=== PATIENT | female | born 1975 | race Caucasian/White ===

== ENCOUNTER 2019-08-12 08:57 | Emergency (ER) | payer OTHER ==
[~2019-08-12] VITALS: Ht 165.1 cm; Wt 75.5 kg
[2019-08-12 08:58] VITALS: BP 137/79
[2019-08-12] MEDS ORDERED: ALB (09:04)
[2019-08-12] MEDS ORDERED: ACETAMINOPHEN 325 MG TAB PO ONE (10:15)
--- NOTE | 2019-08-12 10:23 | REP ---
CT of the brain without IV contrast: There are no comparisons. There is no subdural or epidural hematoma. There is no intraparenchymal or subarachnoid hemorrhage. There is no edema, mass effect or midline shift. The cortical stripe is unremarkable. The ventricles are normal size and midline. The visualized paranasal sinuses and mastoid air cells are clear. Impression: Essentially negative CT study of the brain. Electronically Signed by Dequan Crane MD 08/12/2019 10:15 A
== END 2019-08-12 10:53 | disposition home or self-care (01) ==
LOC: M ED 08:57
DX: S00.03XA Contusion of scalp, initial encounter (principal); W22.8XXA Striking against or struck by other objects, initial encounter; Y92.89 Other specified places as the place of occurrence of the external cause; Y99.0 Civilian activity done for income or pay; F17.210 Nicotine dependence, cigarettes, uncomplicated

== ENCOUNTER → 2020-01-29 | Outpatient (CLI) | payer OTHER ==
[~2020-01-29] MED LIST: ALB
--- NOTE | 2020-01-29 14:52 | REPMRS ---
Patient History The patient states she has not had a clinical breast exam in over a year. Family history of breast cancer in maternal grandmother, cervical cancer at age 29 in mother, prostate cancer in paternal grandfather. 3D TOMOSYNTHESIS WAS PERFORMED. [facility] lifetime risk for breast cancer is 17.3%. CRISTINA [place]. Digital Woman Screen Mammo: January 29, 2020 - Exam #: [id number] Bilateral CC and MLO view(s) were taken. Technologist: Ailyn Rose, Technologist No prior studies available for comparison. FINDINGS: The breast tissue is heterogeneously dense. This may lower the sensitivity of mammography. There is a moderate amount of residual fibroglandular tissue which is fairly symmetric. There is no dominant mass, areas of architectural distortion, or clustered microcalcification typical of malignancy. Assessment: BI-RADS/ACR category 1 mammogram. Negative Mammogram. Recommendation Routine screening mammogram in 1 year (for women over age 40). This mammogram was interpreted with the aid of an FDA-approved computer-aided dectection system. Electronically Signed By: Dequan Espinoza MD 01/29/20 2320
== END ==
LOC: M WHC 13:44
PROVIDERS: ATTEND Emergency Medicine
DX: Z12.31 Encounter for screening mammogram for malignant neoplasm of breast (principal)

== ENCOUNTER → 2021-03-09 | Outpatient (CLI) | payer OTHER ==
--- NOTE | 2021-03-09 15:09 | REPMRS ---
Patient History The patient states she has not had a clinical breast exam in over a year. Family history of breast cancer in maternal grandmother, unknown cancer at age 29 in mother, prostate cancer in paternal grandfather. Pfizer vaccine 09/23/20 right arm. 10/14/20 right arm. Pt denied . Patient states no breast complaints today. Patient has signed MRS History Sheet. Digital Woman Screen Mammo: March 09, 2021 - Exam #: [id number] Bilateral CC and MLO view(s) were taken. Technologist: RT Alex Prior study comparison: January 29, 2020, bilateral digital woman screen mammo performed at [facility]. FINDINGS: The breast tissue is heterogeneously dense. This may lower the sensitivity of mammography. The Volpara volumetric breast density category is: C. There is a moderate amount of heterogeneously dense fibroglandular tissue which is fairly symmetric. There is no interval development of dominant mass, architectural distortion, or grouped microcalcification typical of malignancy. There has been no change in the appearance of the mammogram from the prior studies. 3-D tomosynthesis shows no additional findings. Assessment: BI-RADS/ACR category 1 mammogram. Negative Mammogram. Recommendation Routine screening mammogram of both breasts in 1 year (for women over age 40). This patient's [facility] Lifetime Breast Cancer RIsk is estimated at 17.1 %. This mammogram was interpreted with the aid of an FDA-approved computer-aided dectection system. Electronically Signed By: Gabino Romero MD 03/09/21 [id number]
== END ==
LOC: M WHC 14:07
PROVIDERS: ATTEND Family Medicine
DX: Z12.31 Encounter for screening mammogram for malignant neoplasm of breast (principal)

== ENCOUNTER 2021-05-05 15:00 | Emergency (ER) | payer OTHER ==
[~2021-05-05] VITALS: Ht 165.1 cm; Wt 83.0 kg
[2021-05-05 15:01] VITALS: BP 155/91
--- OUTSIDE RECORDS SUMMARY | 2021-05-05 15:11 | CCD ---
Author Author [facility] Organization [facility] Address Unknown Phone Unavailable Support Name Relationship Address Phone ELDER Next Of Kin [address] [facility] [address] [place] [address] GAGE CAIN Next Of Kin [address] [facility] [address] [place] [address] Bayron GONSALEZDeshawn Abreu Next Of Kin [address] [place], [place] [id number] Re-disclosure Warning The records that you are about to access may contain information from federally-assisted alcohol or drug abuse programs. If such information is present, then the following federally mandated warning applies: This information has been disclosed to you from records protected by federal confidentiality rules (42 CFR part 2). The federal rules prohibit you from making any further disclosure of this information unless further disclosure is expressly permitted by the written consent of the person to whom it pertains or as otherwise permitted by 42 CFR part 2. A general authorization for the release of medical or other information is NOT sufficient for this purpose. The Federal rules restrict any use of the information to criminally investigate or prosecute any alcohol or drug abuse patient.The records that you are about to access may contain highly sensitive health information, the redisclosure of which is protected by Article 27-F of the [facility] Public Health law. If you continue you may have access to information: Regarding HIV / AIDS; Provided by facilities licensed or operated by the [facility] Office of Mental Health; or Provided by the [facility] Office for People With Developmental Disabilities. If such information is present, then the following [facility] mandated warning applies: This information has been disclosed to you from confidential records which are protected by state law. State law prohibits you from making any further disclosure of this information without the specific written consent of the person to whom it pertains, or as otherwise permitted by law. Any unauthorized further disclosure in violation of state law may result in a fine or fci sentence or both. A general authorization for the release of medical or other information is NOT sufficient authorization for further disc losure. Immunizations Vaccine Date Status Description Data Source(s) COVID-19 VACCINE Pfizer 10/14/2020 12:00:00 AM EDT completed [facility] Vaccine Series Complete: YESThis Data wa s Submitted to [facility] Via [employer]. COVID-19 VACCINE Pfizer 09/23/2020 12:00:00 AM EST completed [facility] Vaccine Series Complete: NOThis Data was Submitted to [facility] Via [employer]. INFLUENZA VIRUS VACCINE QUADRIVAL (6 MOS AND UP)/PF 04/23/2020 12:00:00 AM EDT completed [facility] Medications Medication Brand Name Start Date Product Form Dose Route Admi nistrative Instructions Pharmacy Instructions Status Indications Reaction Description Data Source(s) 60 mcg (15 mcg x 4)/0.5 mL 04/27/2021 12:00:00 AM EDT syring e 0 INJECT DIRECTED INJECT DIRECTED SOLD: 04/27/2021 [employer] Insurance Providers Payer name Policy type / Coverage type Policy ID Covered democrat ID Covered democrat's relationship to brady Policy Brady Plan Information [facility] HUMANA [id number] [facility] [id number] DG CLAIM ADMIN WORK COMP SP DG CLAIM ADMIN WORK O [id number] S [id number] [facility] [id number] SP [id number] [facility] O [id number] S [id number] [facility] O [id number] S [id number] [facility] [id number] 2 [id number] ANSI-Commercial [id number] Problems, Conditions, and Diagnoses No Information Surgeries/Procedures No Information Results No Information Social History No Information
--- OUTSIDE RECORDS SUMMARY | 2021-05-05 19:50 | CCD ---
Author Author [facility] Organization [facility] Address Unknown Phone Unavailable Support Name Relationship Address Phone ELDER Next Of Kin [address] [facility] [address] [place] [address] GAGE CAIN Next Of Kin [address] [facility] [address] [place] [address] Bayron GONSALEZDeshawn Abreu Next Of Kin [address] [place], [place] [phone] Re-disclosure Warning The records that you are [...] is protected by Article 27-F of the [facility] Public Health law. If you continue you may have access to information: Regarding HIV / AIDS; Provided by facilities licensed or operated by the [facility] Office of Mental Health; or Provided by the [facility] Office for People With Developmental Disabilities. If such information is present, then the following [facility] mandated warning applies: This information has been [...] law may result in a fine or shelter sentence or both. A general authorization for the release of medical or other information is NOT sufficient authorization for further disc losure. Immunizations Vaccine Date Status Description Data Source(s) COVID-19 VACCINE Pfizer 10/14/2020 12:00:00 AM EDT completed [facility] Vaccine Series Complete: YESThis Data wa s Submitted to [facility] Via [employer]. COVID-19 VACCINE Pfizer 09/23/2020 12:00:00 AM EST completed [facility] Vaccine Series Complete: NOThis Data was Submitted to [facility] Via [employer]. INFLUENZA VIRUS VACCINE QUADRIVAL (6 MOS AND UP)/PF 04/23/2020 12:00:00 AM EDT completed [facility] Medications Medication Brand Name Start Date Product Form Dose Route Admi nistrative Instructions Pharmacy Instructions Status Indications Reaction Description Data Source(s) 60 mcg (15 mcg x 4)/0.5 mL 04/27/2021 12:00:00 AM EDT syring e 0 INJECT DIRECTED INJECT DIRECTED SOLD: 04/27/2021 [employer] Insurance Providers Payer name Policy type / Coverage type Policy ID Covered alliance party ID Covered alliance party's relationship to brady Policy Brady Plan Information [facility] HUMANA [id number] [facility] [id number] DG CLAIM ADMIN WORK COMP SP DG CLAIM ADMIN WORK O [id number] S [id number] [facility] [id number] SP [id number] [facility] O [id number] S [id number] [facility] O [id number] S [id number] [facility] [id number] 2 [id number] ANSI-Commercial [id number] Problems, Conditions, and Diagnoses No Information Surgeries/Procedures No Information Results No Information Social History No Information
== END 2021-05-05 19:50 | disposition left against medical advice (07) ==
LOC: M ED 15:00
DX: Z53.21 Procedure and treatment not carried out due to patient leaving prior to being seen by health care provider (principal)

== ENCOUNTER 2021-05-07 07:43 | Inpatient (IN) | payer OTHER ==
[~2021-05-07] VITALS: Ht 165.1 cm; Wt 80.4 kg
--- OUTSIDE RECORDS SUMMARY | 2021-05-07 07:47 | CCD ---
Author Author [facility] Organization [facility] Address Unknown Phone Unavailable Support Name Relationship Address Phone ELDER Next Of Kin [address] [address] [address] [place] [address] ANTGAGE GALLOWAY Next Of Kin [address] [facility] [address] [place] [address] Bayron GONSALEZLois, Deshawn Next Of Kin [address] [place] [address] GAGE CAIN [place] [phone] [facility] [address] [place] [address] Unavailable Re-disclosure Warning The records that you are [...] is protected by Article 27-F of the [facility] Public Health law. If you continue you may have access to information: Regarding HIV / AIDS; Provided by facilities licensed or operated by the [facility] Office of Mental Health; or Provided by the [facility] Office for People With Developmental Disabilities. If such information is present, then the following [facility] mandated warning applies: This information has [...] law may result in a fine or group home sentence or both. A general authorization for the release of medical or other information is NOT sufficient authorization for further disc losure. Immunizations Vaccine Date Status Description Data Source(s) COVID-19 VACCINE Pfizer 10/14/2020 12:00:00 AM EDT completed [facility] Vaccine Series Complete: YESThis Data wa s Submitted to [facility] Via [employer]. COVID-19 VACCINE Pfizer 09/23/2020 12:00:00 AM EST completed [facility] Vaccine Series Complete: NOThis Data was Submitted to [facility] Via [employer]. INFLUENZA VIRUS VACCINE QUADRIVAL [id number](6 MOS AND UP)/PF 04/23/2020 12:00:00 AM EDT completed [employer] Medications Medication Brand Name Start Date Product Form Dose Route Admi nistrative Instructions Pharmacy Instructions Status Indications Reaction Description Data Source(s) 60 mcg (15 mcg x 4)/0.5 mL 04/27/2021 12:00:00 AM EDT syring e 0 INJECT DIRECTED INJECT DIRECTED SOLD: 04/27/2021 [employer] Insurance Providers Payer name Policy type / Coverage type Policy ID Covered republican ID Covered republican's relationship to brady Policy Brady Plan Information [facility] HUMANA [facility] [id number] [facility] [id number] DG CLAIM ADMIN WORK COMP SP DG CLAIM ADMIN WORK O [id number] S [id number] [facility] [id number] SP [id number] [facility] O [id number] S [id number] [facility] O [id number] S [id number] [facility] [id number] ANSI-Commercial [id number] Problems, Conditions, and Diagnoses No Information Surgeries/Procedures No Information Results No Information Social History No Information
[2021-05-07] MEDS ORDERED: diphenhydrAMINE 50MG CAP PO ONE (08:20)
[2021-05-07] MEDS ORDERED: KETOROLAC 30 MG/ML 1ML VIAL IV ONE (08:20)
--- OUTSIDE RECORDS SUMMARY | 2021-05-07 08:20 | CCD ---
Author Author [facility] Organization [facility] Address Unknown Phone Unavailable Support Name Relationship Address Phone ELDER Next Of Kin [address] [address] [address] [place] [address] ANTGAGE GALLOWAY Next Of Kin [address] [facility] [address] [place] [address] Bayron GONSALEZLois, Deshawn Next Of Kin [address] [place] [address] GAGE CAIN [place] [phone] [facility] [address] [place] [address] Unavailable Re-disclosure Warning The records that you [...] is protected by Article 27-F of the [facility] Public Health law. If you continue you may have access to information: Regarding HIV / AIDS; Provided by facilities licensed or operated by the [facility] Office of Mental Health; or Provided by the [facility] Office for People With Developmental Disabilities. If such information is present, then the following [facility] mandated warning applies: This information has [...] law may result in a fine or fdc sentence or both. A general authorization for the release of medical or other information is NOT sufficient authorization for further disc losure. Immunizations Vaccine Date Status Description Data Source(s) COVID-19 VACCINE Pfizer 10/14/2020 12:00:00 AM EDT completed [facility] Vaccine Series Complete: YESThis Data wa s Submitted to [facility] Via [employer] COVID-19 VACCINE Pfizer 09/23/2020 12:00:00 AM EST completed [facility] Vaccine Series Complete: NOThis Data was Submitted to [facility] Via [employer] INFLUENZA VIRUS VACCINE QUADRIVAL [id number](6 MOS AND UP)/PF 04/23/2020 12:00:00 AM EDT completed [employer] Medications Medication Brand Name Start Date Product Form Dose Route Admi nistrative Instructions Pharmacy Instructions Status Indications Reaction Description Data Source(s) 60 mcg (15 mcg x 4)/0.5 mL 04/27/2021 12:00:00 AM EDT syring e 0 INJECT DIRECTED INJECT DIRECTED SOLD: 04/27/2021 [employer] Insurance Providers Payer name Policy type / Coverage type Policy ID Covered democrat ID Covered democrat's relationship to brady Policy Brady Plan Information [facility] HUMANA [facility] [id number] [facility] [id number] DG CLAIM ADMIN WORK COMP SP DG CLAIM ADMIN WORK O [id number] S [id number] [facility] [id number] SP [id number] [facility] O [id number] S [id number] [facility] O [id number] S [id number] [facility] [id number] 2 [id number] ANSI-Commercial [id number] Problems, Conditions, and Diagnoses No Information Surgeries/Procedures No Information Results No Information Social History No Information
[2021-05-07 08:59] LABS: BASO % 0.2 % (0.0-1.0); EOS # 0.2 10^3/uL (0.0-0.5); EOS % 1.6 % (0.0-3.0); HEMATOCRIT 38.2 % (36.0-47.0); HEMOGLOBIN 13.7 g/dl (12.0-15.5); LYMPH # 2.6 10^3/uL (1.5-5.0); LYMPH % 22.8 % (24.0-44.0); MEAN CORPUSCULAR HEMOGLOBIN 30.1 pg (27.0-33.0); MEAN CORPUSCULAR HGB CONC 35.9 g/dl (32.0-36.5); MONO # 0.8 10^3/uL (0.0-0.8); MONO % 6.7 % (2.0-8.0); NEUTROPHILS # 7.7 10^3/uL (1.5-8.5); NEUTROPHILS % 68.3 % (36.0-66.0); PLATELET COUNT, AUTOMATED 344 10^3/uL (150-450); RED BLOOD COUNT 4.55 10^6/uL (4.00-5.40); WHITE BLOOD COUNT 11.3 10^3/uL (4.0-10.0)
[2021-05-07] MEDS ORDERED: NS 1,000 ML IV ONE (09:30)
[2021-05-07 09:43] LABS: RSV AMPLIFICATION NEGATIVE (NEGATIVE)
[2021-05-07 10:05] LABS: BLOOD UREA NITROGEN 10 MG/DL (7-18); CALCIUM LEVEL 8.4 MG/DL (8.5-10.1); CARBON DIOXIDE LEVEL 26 MEQ/L (21-32); CHLORIDE LEVEL 89 MEQ/L (98-107); CREATININE FOR GFR 0.61 MG/DL (0.55-1.30); GLOMERULAR FILTRATION RATE > 60.0 (>58); GLUCOSE, FASTING 87 MG/DL (70-100); POTASSIUM SERUM 4.5 MEQ/L (3.5-5.1); SODIUM LEVEL 121 MEQ/L (136-145)
[2021-05-07 10:14] LABS: OSMOLALITY SERUM 249 MOSM/KG (275-295)
[2021-05-07] MEDS ORDERED: CETI-24 PO (10:19)
[2021-05-07] MEDS ORDERED: AMIT10TA7 PO (10:19)
[2021-05-07] MEDS ORDERED: PROAAER10 INH (10:19)
[2021-05-07] MEDS ORDERED: FLUTISP NARES (10:19)
[2021-05-07] MEDS ORDERED: HOME MED LIST COMPLETE! XX SCH (10:20)
--- NOTE | 2021-05-07 10:24 | REPVR ---
PROCEDURE INFORMATION: Exam: CT Head Without Contrast Exam date and time: 05/07/2021 9:48 AM Age: 45 years old Clinical indication: Pain; Headache; Additional info: Headache for 13 days/ worst life TECHNIQUE: Imaging protocol: Computed tomography of the head without contrast. Radiation optimization: All CT scans at this facility use at least one of these dose optimization techniques: automated exposure control; mA and/or kV adjustment per patient size (includes targeted exams where dose is matched to clinical indication); or iterative reconstruction. COMPARISON: CT Head without contrast 08/12/2019 9:53 AM FINDINGS: Brain: No acute abnormality. Brain volume is maintained. Punctate 1 mm calcification in the 3rd ventricle is stable may be a very tiny colloid cyst. It does not appear to be causing any significant mass effect. Cerebral ventricles: No ventriculomegaly. Paranasal sinuses: Visualized sinuses are unremarkable. No fluid levels. Mastoid air cells: Visualized mastoid air cells are well aerated. Bones/joints: Unremarkable. No acute fracture. Soft tissues: Unremarkable. IMPRESSION: No acute intracranial abnormality. No significant interval change. Electronically signed by: Ronal Vasquez On 05/07/2021 10:23:47 AM
[2021-05-07 10:26] LABS: THYROID STIMULATING HORMONE 0.985 uIU/ML (0.358-3.740)
[2021-05-07 10:35] LABS: OSMOLALITY URINE 951 MOSM/KG (50-1400)
[2021-05-07 10:47] LABS: C REACTIVE PROTEIN QUANTITATIV < 0.30 MG/DL (0.00-0.30)
[2021-05-07 10:58] LABS: SODIUM,RANDOM URINE 126 MEQ/L
[2021-05-07] MEDS ORDERED: ACETAMINOPHEN 325 MG TAB PO ONE (11:15)
--- OUTSIDE RECORDS SUMMARY | 2021-05-07 11:21 | CCD ---
Author Author [facility] Organization [facility] Address Unknown Phone Unavailable Support Name Relationship Address Phone ELDER Next Of Kin [address] [address] 0 [place] [address] ANTGAGE GALLOWAY Next Of Kin [address] [facility] [address] [place] [address] Bayron GONSALEZLois, Deshawn Next Of Kin [address] [place] [address] GAGE CAIN [place] [phone] [facility] [address] [place] [address] Unavailable Re-disclosure Warning The records that you [...] of the [facility] Public Health law. If you continue you may have access to information: Regarding HIV / AIDS; Provided by facilities licensed or operated by the [facility] Office of Mental Health; or Provided by the [facility] Office for People With Developmental Disabilities. If such information is present, then the following [facility] mandated warning applies: This information has been [...] law may result in a fine or detention sentence or both. A general authorization for the release of medical or other information is NOT sufficient authorization for further disc losure. Immunizations Vaccine Date Status Description Data Source(s) COVID-19 VACCINE Pfizer 10/14/2020 12:00:00 AM EDT completed [facility] Vaccine Series Complete: YESThis Data wa s Submitted to [facility] Via [employer]. COVID-19 VACCINE Pfizer 09/23/2020 12:00:00 AM EST completed [facility] Vaccine Series Complete: NOThis Data was Submitted to [facility] Via [employer]. INFLUENZA VIRUS VACCINE QUADRIVAL [id number](6 MOS AND UP)/PF 04/23/2020 12:00:00 AM EDT completed [employer] Medications Medication Brand Name Start Date Product Form Dose Route Admi nistrative Instructions Pharmacy Instructions Status Indications Reaction Description Data Source(s) 60 mcg (15 mcg x 4)/0.5 mL 04/27/2021 12:00:00 AM EDT syring e 0 INJECT DIRECTED INJECT DIRECTED SOLD: 04/27/2021 [employer] Insurance Providers Payer name Policy type / Coverage type Policy ID Covered green party ID Covered green party's relationship to brady Policy Brady Plan Information [facility] HUMANA [facility] [id number] [facility] [id number] DG CLAIM ADMIN WORK COMP SP DG CLAIM ADMIN WORK O [id number] S [id number] [facility] [id number] SP [id number] [facility] O [id number] S [id number] [facility] O [id number] S [id number] [facility] [id number] 2 [id number] ANSI-Commercial [id number] Problems, Conditions, and Diagnoses No Information Surgeries/Procedures No Information Results No Information Social History No Information
[2021-05-07] MEDS ORDERED: METOCLOPRAMIDE 5 MG TAB PO ONE (12:00)
[2021-05-07] MEDS ORDERED: SUMAtriptan SUCCINATE 6 MG/0.5 ML VIAL SC ONE (12:10)
[2021-05-07] MEDS: METOCLOPRAMIDE INJ 10MG/2ML VIAL (J2765 PER 1) IV SCH ×2 (14:00→20:09)
[2021-05-07] MEDS ORDERED: ALBUTEROL 90 MCG/ACT 8GM HFA INHALER INH PRN (14:10)
--- NOTE | 2021-05-07 14:13 | HPEPDOC ---
General Date of Admission May 07, 2021 at 11:10 Date of Service: May 07, 2021 Chief Complaint The patient is a 45-year-old female admitted with a reason for visit of Headache, Hyponatremia. Source: Patient History of Present Illness 45-year-old female presented to the emergency room for ongoing severe headache for the past 13 days. Patient has seen her primary care twice and medications have been ordered including ibuprofen and Tylenol and yesterday she was ordered amitriptyline which she took 1 dose without any relief of her symptoms. This morning she had nausea and vomiting along with the headache so presented to the emergency room. Patient complains of pain in the head neck mostly in the occipital region and also at the top of the head dull throbbing in nature rates the pain as 7/10 after she got some pain medication in the emergency room. Her pain is associated with sensibility to light and nausea and vomiting this morning. CT head in the emergency room was negative. Irrigations in the emergency room was not able to control her pain so she was admitted to the hospitalist service for severe intractable headache Home Medications Scheduled Amitriptyline HCl (Amitriptyline HCl) 10 Mg Tablet, 10 MG PO QHS, (Reported) Fluticasone Propionate (Fluticasone Propionate) 16 Gm [place].susp, 1 SPRAY NARES BID, (Reported) Scheduled PRN Albuterol Sulfate (Proair Hfa) 8.5 Gm Hfa.aer.ad, 2 PUFF INH Q4H PRN for SHORTNESS OF BREATH, (Reported) Cetirizine HCl (Cetirizine HCl) 10 Mg Tablet, 10 MG PO DAILY PRN for ALLERGIES, (Reported) Allergies Coded Allergies: No Known Allergies (Unverified , 08/12/19) Past Medical History Medical History Asthma Surgical History section x2, tubal ligation, uterine ablation Family History Significant Family History: Diabetes (Mother), Heart disease (Mother), Renal disease (Mother) Social History * Smoker: non-smoker Alcohol: rarely Drugs: denies A-FIB/CHADSVASC A-FIB History Current/History of A-Fib/PAF?: No Review of Systems Constitutional: Denies: Chills, Fever, Night Sweats Eyes: Denies: Pain, Vision change, Conjunctivae inflammation, Eyelid inflammation, Redness, Other ENT: Reports: Head Aches Skin: Denies: Rash, Lesions, Breakdown Pulmonary: Denies: Dyspnea, Cough Cardiovascular: Denies: Chest Pain, Palpitations, Orthopnea, Paroxysmal Noc. Dyspnea, Lt Headedness Gastrointestinal: Reports: Nausea, Vomiting; Denies: Abdominal Pain, Diarrhea, Constipation Genitourinary: Denies: Dysuria, Frequency, Incontinence, Retention Hematologic: Denies: Bruising, Bleeding Excessively Musculoskeletal: Denies: Neck Pain, Back Pain, Joint Pain, Muscle Pain, Spasms Neurological: Denies: Weakness, Numbness, Change in speech, Confusion Physical Examination General Exam: Positive: Alert, Cooperative, No Acute Distress Eye Exam: Positive: PERRLA, Conjunctiva & lids normal, EOMI; Negative: Sclera icteric ENT Exam: Positive: Atraumatic, Mucous membr. moist/pink, Pharynx Normal Neck Exam: Positive: Supple; Negative: JVD, thyromegaly Chest Exam: Positive: Clear to auscultation, Normal air movement Heart Exam: Positive: Rate Normal, Regular Rhythm, Normal S1, Normal S2; Negative: Murmurs, Rubs Abdomen Exam: Positive: Normal bowel sounds, Soft; Negative: Tenderness, Hepatospenomegaly Extremity Exam: Positive: Normal pulses; Negative: Clubbing, Cyanosis, Edema Skin Exam: Positive: Nl turgor and temperature; Negative: Breakdown, Lesion Psych Exam: Positive: Memory Intact, Oriented x 3 Vital Signs Vital Signs Date Time Temp Pulse Resp B/P (MAP) Pulse Ox O2 Delivery O2 Flow Rate FiO2 05/07/21 07:43 97.4 72 18 125/74 (91) 98 Room Air Laboratory Data Labs 24H Laboratory Tests 2 05/07/21 08:45: Immature Granulocyte % (Auto) 0.4, Neutrophils (%) (Auto) 68.3H, Lymphocytes (%) (Auto) 22.8L, Monocytes (%) (Auto) 6.7, Eosinophils (%) (Auto) 1.6, Basophils (%) (Auto) 0.2, Neutrophils # (Auto) 7.7, Lymphocytes # (Auto) 2.6, Monocytes # (Auto) 0.8, Eosinophils # (Auto) 0.2, Basophils # (Auto) 0.0, Nucleated Red Blood Cells % (auto) 0.0, Erythrocyte Sedimentation Rate 6, Coronavirus (COVID- 19)(PCR) NEGATIVE, Influenza Type A (RT-PCR) NEGATIVE, Influenza Type B (RT-PCR) NEGATIVE, Respiratory Syncytial Virus (PCR) NEGATIVE 05/07/21 09:07: POC Glucose (Misc Panel) 88, POC Sodium (Misc Panel) 120L, POC Potassium (Misc Panel) 4.2, POC Chloride (Misc Panel) 84L, POC Total CO2 (Misc Panel) 24.0, POC Blood Urea Nitrogen (Misc Panel 10, POC Ionized Calcium (Misc Panel) 4.5, POC Creatinine (Misc Panel) 0.7, POC Hematocrit (Misc Panel) 41.0 05/07/21 09:15: Anion Gap 6L, Glomerular Filtration Rate > 60.0, Osmolality 249L, Calcium Level 8.4L, C-Reactive Protein, Quantitative < 0.30, Thyroid Stimulating Hormone (TSH) 0.985 05/07/21 09:17: POC Beta HCG, Quantitative < 5.0 05/07/21 10:24: Urine Osmolality 951, Urine Random Sodium 126 CBC/BMP Laboratory Tests 05/07/21 08:45 05/07/21 09:15 Assessment/Plan 45-year-old female presented to the emergency room for ongoing severe headache for the past 13 days. Patient has seen her primary care twice and medications have been ordered including ibuprofen and Tylenol and yesterday she was ordered amitriptyline which she took 1 dose without any relief of her symptoms. This morning she had nausea and vomiting along with the headache so presented to the emergency room. Patient complains of pain in the head neck mostly in the occipital region and also at the top of the head dull throbbing in nature rates the pain as 7/10 after she got some pain medication in the emergency room. Her pain is associated with sensibility to light and nausea and vomiting this morning. CT head in the emergency room was negative. Irrigations in the emergency room was not able to control her pain so she was admitted to the hospitalist service for severe intractable headache. Headache Likely acute migraine We will put the patient on Toradol, Reglan, Benadryl, sumatriptan If headache is not improved by tomorrow will likely get an MRI of brain. Hyponatremia Na 121, urine os > 900 , Ur Na at 126 likely due to increased ADH activity form the severe ongoing pain started on hypertonic salin recheck na every 6 hours. Nephro consulted Asthma No issues at this Will order albuterol as needed Plan / VTE VTE Prophylaxis Ordered?: Yes Marely Marie MD May 07, 2021 14:13
[2021-05-07] MEDS ORDERED: SODIUM CHLORIDE 3% 100 ML IV SCH (15:00)
[2021-05-07 16:10] VITALS: BP 124/80
[2021-05-07] MEDS: diphenhydrAMINE 50MG/ML VIAL (J1200) IV SCH ×2 (16:11→20:10)
[2021-05-07] MEDS: KETOROLAC 30 MG/ML 1ML VIAL IV SCH ×2 (16:12→20:10)
[2021-05-07 16:43] LABS: BLOOD UREA NITROGEN 13 MG/DL (7-18); CALCIUM LEVEL 8.4 MG/DL (8.5-10.1); CARBON DIOXIDE LEVEL 24 MEQ/L (21-32); CHLORIDE LEVEL 87 MEQ/L (98-107); CREATININE FOR GFR 0.55 MG/DL (0.55-1.30); GLOMERULAR FILTRATION RATE > 60.0 (>58); GLUCOSE, FASTING 81 MG/DL (70-100); POTASSIUM SERUM 4.2 MEQ/L (3.5-5.1); SODIUM LEVEL 119 MEQ/L (136-145)
[2021-05-07] MEDS: SUMAtriptan SUCCINATE 25 MG TAB PO PRN (18:43)
[2021-05-07 19:54] VITALS: BP 124/79
[2021-05-07 21:01] LABS: BLOOD UREA NITROGEN 13 MG/DL (7-18); CALCIUM LEVEL 7.7 MG/DL (8.5-10.1); CARBON DIOXIDE LEVEL 25 MEQ/L (21-32); CHLORIDE LEVEL 88 MEQ/L (98-107); CREATININE FOR GFR 0.63 MG/DL (0.55-1.30); GLOMERULAR FILTRATION RATE > 60.0 (>58); GLUCOSE, FASTING 75 MG/DL (70-100); POTASSIUM SERUM 3.8 MEQ/L (3.5-5.1); SODIUM LEVEL 120 MEQ/L (136-145)
[2021-05-08] MEDS: SODIUM CHLORIDE 1 GM TAB PO SCH ×4 (00:11→17:47)
[2021-05-08] MEDS: SUMAtriptan SUCCINATE 25 MG TAB PO PRN ×2 (00:12→17:47)
--- NOTE | 2021-05-08 00:12 | CR ---
CONSULTATION DATE: 05/07/2021 REQUESTING PHYSICIAN: Dr. Marely Marie REASON FOR CONSULTATION: Hypo-osmolar hyponatremia HISTORY OF PRESENT ILLNESS: Hallie Menjivar is previously unknown to me. This is the first time she has had blood work done at the [facility]. She reports her primary care is through [place] and that she had normal labs done during a routine checkup over the summer. She came to the Emergency Room with a complaint of a 13-day history of severe headache. She complains of a 2-3 day history of nausea and poor intake and subsequent development of recurrent vomiting. She was unable to keep anything down and her headache continued to intensify and was described as throbbing and pounding. She reports her primary care had recommended that she take Tylenol, NSAIDs and recently Amitriptyline, but she had no improvement in her headache and after developing vomiting, she decided to come to the Emergency Room for further evaluation. She reports she has had headaches in the past, but none that have lasted this long. She also reports she has not been formally diagnosed with any sort of syndrome of headaches. In the Emergency Room, she had a CAT scan that did not show any acute abnormalities, but laboratory studies revealed a sodium level of 121 with a serum osmolality depressed at 249. She had a normal TSH and urine osmolality was significantly elevated at 951 mOsm and nephrology evaluation was requested for help in the management of her hypo-osmolar hyponatremia. Patient denies any prior known history of sodium disorder. Denies history of regular steroid use. Denies history of diuretic use. Denies history of thyroid disorders and denies history of polydipsia. She reports no confusion, but does feel a little "foggy." HOME MEDICATIONS: Recently started on Amitriptyline 10 mg p.o. q.h.s. Also uses Fluticasone [place] b.i.d. and p.r.n. Tylenol and Ibuprofen. ALLERGIES: No known drug allergies. PAST MEDICAL HISTORY: Asthma and history of headaches. PAST SURGICAL HISTORY: section, tubal ligation, uterine ablation. FAMILY HISTORY: Significant for diabetes and heart disease in her mother. SOCIAL HISTORY: She is a nonsmoker, reports rare alcohol intake. Denies drugs. REVIEW OF SYSTEMS: Constitutional: Denies fevers or chills. ENT: Reports headaches. Denies rhinorrhea or epistaxis. Eyes: Denies visual changes or tearing. Skin: Denies rashes, lesions or breakdown. Cardiovascular: Denies chest pain, palpitations or swelling. Pulmonary: Denies cough, shortness of breath. Reports history of asthma. Gastrointestinal: Reports nausea, vomiting. Denies diarrhea or constipation. Genitourinary: Denies dysuria or hematuria. Hematologic: Denies anemia, easy bleeding or bruising. Neurologic: Denies confusion. Reports feeling a little "foggy." Musculoskeletal: Denies acute myalgias or arthralgias. Remainder of review of systems is negative or as per HPI. PHYSICAL EXAMINATION: VITAL SIGNS: Temperature 98.2, pulse 65, respiratory rate 17, blood pressure 124/79, saturating 98% on room air. Saturating 98% on room air. GENERAL: Patient is seen lying fairly comfortably in the stretcher in the Emergency Room in a darkened room. A middle-age female awake, alert and oriented x3, comfortable appearing in no distress. Able to carry on a conversation without any issues. HEENT: Extraocular muscles are intact. Tongue is moist. Neck is supple. Jugular veins are not elevated. There is no thyromegaly. HEART: Heart sounds are regular, S1, S2. Peripheral pulses are palpable. There is no edema. There is no leg swelling. LUNGS: Clear to auscultation. There is no crackle, rale or rhonchus. ABDOMEN: Soft and nontender. EXTREMITIES: Negative for edema, clubbing or cyanosis. NEUROLOGIC: She is oriented x3. There are no focal deficits. She is interactive and conversational. LABORATORY DATA: Sodium 121, potassium 4.5, bicarbonate 26, chloride 89, BUN 10, creatinine 0.6. Serum osmolality 249. TSH 0.98. Hemoglobin 13.7, platelets 344,000. Urine osmolality 951. Urine sodium 126. IMAGING STUDIES: Head CT done today shows no acute abnormality. INPATIENT MEDICATIONS: I ordered hypertonic saline 100 cc to be given over three hours. She is on diphenhydramine 25 mg I.V. every 6 hours. She received a dose of Tylenol 975 mg x1. She is also receiving Toradol 15 mg I.V. every 6 hours, Reglan 5 mg p.o. x1 and 5 mg I.V. every 6 hours, Sumatriptan 6 mg subcutaneous x1 and Sumatriptan 50 mg p.o. every 2 hours p.r.n. headache. PROBLEMS: 1. Euvolemic hypo-osmolar hyponatremia: Patient denies a prior history of sodium disorder, she denies any history of diuretic or laxative use. Denies history of steroid use or thyroid issues. In the absence of other findings, I think her hyponatremia is likely secondary to anti-diuretic hormone excess secondary to prolonged headaches, pain, nausea. Her urine osmolality is extremely high at almost 1,000 mOsm. She should not receive normal saline as she is likely to desalinate and have worsening hyponatremia. Instead I will give her 100 cc of hypertonic saline over three hours and we will get a repeat BMP to reassess and further management will be based upon her clinical course and repeat labs. I will try to bring her sodium up to around 128 by 24-hour period. We will also check an a.m. Cortisol level and primary team is working on pain and nausea control. 2. Prolonged headache: Patient denies a prior formal diagnosis of migraine or headache syndrome. She reports she does have intermittent headaches, but they usually just last a couple of days. She had a negative CT head in the Emergency Room. She is receiving I.V. Toradol, antiemetics and Sumatriptan managed by the primary team. I strongly suggest that she have an MRI of the brain as well given that her headache and pain was severe enough to cause significant hyponatremia. Consideration can also be given to Neurology evaluation. Thank you for involving me in the care of Ms. Menjivar. I will be happy to follow her along with you. ESTRELLA
[2021-05-08] MEDS: KETOROLAC 30 MG/ML 1ML VIAL IV SCH ×4 (02:13→19:58)
[2021-05-08] MEDS: diphenhydrAMINE 50MG/ML VIAL (J1200) IV SCH ×4 (02:14→19:57)
[2021-05-08] MEDS: METOCLOPRAMIDE INJ 10MG/2ML VIAL (J2765 PER 1) IV SCH ×4 (02:14→19:59)
[2021-05-08 06:29] LABS: BASO % 0.4 % (0.0-1.0); EOS # 0.3 10^3/uL (0.0-0.5); EOS % 3.4 % (0.0-3.0); HEMATOCRIT 36.6 % (36.0-47.0); HEMOGLOBIN 13.2 g/dl (12.0-15.5); LYMPH # 3.1 10^3/uL (1.5-5.0); LYMPH % 39.8 % (24.0-44.0); MEAN CORPUSCULAR HEMOGLOBIN 30.1 pg (27.0-33.0); MEAN CORPUSCULAR HGB CONC 36.1 g/dl (32.0-36.5); MEAN CORPUSCULAR VOLUME 83.6 fl (80.0-96.0); MONO # 0.7 10^3/uL (0.0-0.8); MONO % 8.6 % (2.0-8.0); NEUTROPHILS # 3.7 10^3/uL (1.5-8.5); NEUTROPHILS % 47.5 % (36.0-66.0); PLATELET COUNT, AUTOMATED 321 10^3/uL (150-450); RED BLOOD COUNT 4.38 10^6/uL (4.00-5.40); WHITE BLOOD COUNT 7.7 10^3/uL (4.0-10.0)
[2021-05-08 06:50] LABS: BLOOD UREA NITROGEN 12 MG/DL (7-18); CALCIUM LEVEL 7.3 MG/DL (8.5-10.1); CARBON DIOXIDE LEVEL 26 MEQ/L (21-32); CHLORIDE LEVEL 88 MEQ/L (98-107); CREATININE FOR GFR 0.61 MG/DL (0.55-1.30); GLOMERULAR FILTRATION RATE > 60.0 (>58); GLUCOSE, FASTING 72 MG/DL (70-100); POTASSIUM SERUM 3.8 MEQ/L (3.5-5.1); SODIUM LEVEL 121 MEQ/L (136-145)
[2021-05-08 09:04] LABS: SODIUM,RANDOM URINE 76 MEQ/L
[2021-05-08 10:39] LABS: OSMOLALITY URINE 892 MOSM/KG (50-1400)
--- NOTE | 2021-05-08 11:47 | IPNPDOC ---
Subjective Date Seen The patient was seen on 05/08/21. Subjective Chief Complaint/HPI Her headache did get better a little bit overnight however as soon as she is awake her headache is back she was able to tolerate breakfast this morning did not have any nausea or vomiting Objective Physical Examination General Exam: Positive: Alert, Cooperative, No Acute Distress Eye Exam: Positive: PERRLA, Conjunctiva & lids normal, EOMI; Negative: Sclera icteric ENT Exam: Positive: Atraumatic, Mucous membr. moist/pink, Pharynx Normal Neck Exam: Positive: Supple; Negative: JVD, thyromegaly Chest Exam: Positive: Clear to auscultation, Normal air movement Heart Exam: Positive: Rate Normal, Regular Rhythm, Normal S1, Normal S2; Negative: Murmurs, Rubs Abdomen Exam: Positive: Normal bowel sounds, Soft; Negative: Tenderness, Hepatospenomegaly Extremity Exam: Positive: Normal pulses; Negative: Clubbing, Cyanosis, Edema Skin Exam: Positive: Nl turgor and temperature; Negative: Breakdown, Lesion Psych Exam: Positive: Memory Intact, Oriented x 3 Assessment /Plan Assessment 45-year-old female presented to the emergency room for ongoing severe headache for the past 13 days. Patient has seen her primary care twice and medications have been ordered including ibuprofen and Tylenol and yesterday she was ordered amitriptyline which she took 1 dose without any relief of her symptoms. This morning she had nausea and vomiting along with the headache so presented to the emergency room. Patient complains of pain in the head neck mostly in the oc cipital region and also at the top of the head dull throbbing in nature rates the pain as 7/10 after she got some pain medication in the emergency room. Her pain is associated with sensibility to light and nausea and vomiting this morning. CT head in the emergency room was negative. Irrigations in the emergency room was not able to control her pain so she was admitted to the hospitalist service for severe intractable headache. Headache Likely acute migraine however still there is no relief of the headache We will put the patient on Toradol, Reglan, Benadryl, sumatriptan will get MRI of brain. Hyponatremia Na 121, urine os > 900 , Ur Na at 126 likely due to increased ADH activity form the severe ongoing pain currently on salt tabs. Also has low cortisol levels Asthma No issues at this Will order albuterol as needed Plan/VTE VTE Prophylaxis Ordered?: Yes VS, I&O, 24H, Fishbone Vital Signs/I&O Vital Signs Date Time Temp Pulse Resp B/P (MAP) Pulse Ox O2 Delivery O2 Flow Rate FiO2 05/08/21 06:00 97.9 69 18 96 Room Air 05/07/21 19:54 124/79 (94) I&O- Last 24 Hours up to 6 AM 05/08/21 05:59 Intake Total 820 ml Balance 820 ml Laboratory Data 24H LABS Laboratory Tests 2 05/07/21 15:53: Anion Gap 8, Glomerular Filtration Rate > 60.0, Calcium Level 8.4L 05/07/21 20:22: Anion Gap 7L, Glomerular Filtration Rate > 60.0, Calcium Level 7.7L 05/08/21 05:49: Anion Gap 7L, Glomerular Filtration Rate > 60.0, Calcium Level 7.3L, Immature G ranulocyte % (Auto) 0.3, Neutrophils (%) (Auto) 47.5, Lymphocytes (%) (Auto) 39.8, Monocytes (%) (Auto) 8.6H, Eosinophils (%) (Auto) 3.4H, Basophils (%) (Auto) 0.4, Neutrophils # (Auto) 3.7, Lymphocytes # (Auto) 3.1, Monocytes # (Auto) 0.7, Eosinophils # (Auto) 0.3, Basophils # (Auto) 0.0, Nucleated Red Blood Cells % (auto) 0.0, Cortisol AM Sample 2.9L 05/08/21 08:36: Urine Osmolality 892, Urine Random Sodium 76 05/08/21 10:37: Lab Scanned Report Miscellaneous Lab CBC/BMP Laboratory Tests 05/07/21 15:53 05/07/21 20:22 05/08/21 05:49 Marely Marie MD May 08, 2021 11:47
[2021-05-08 14:00] VITALS: BP 124/76
[2021-05-08 14:17] LABS: BLOOD UREA NITROGEN 11 MG/DL (7-18); CARBON DIOXIDE LEVEL 28 MEQ/L (21-32); CHLORIDE LEVEL 89 MEQ/L (98-107); CREATININE FOR GFR 0.75 MG/DL (0.55-1.30); GLOMERULAR FILTRATION RATE > 60.0 (>58); GLUCOSE, FASTING 83 MG/DL (70-100); POTASSIUM SERUM 3.7 MEQ/L (3.5-5.1); SODIUM LEVEL 124 MEQ/L (136-145)
--- NOTE | 2021-05-08 15:41 | IPN ---
PROGRESS NOTE DATE: 05/08/2021 Ms. Menjivar is seen this morning on her bedside. She reports improving headache and feeling much better today. She still has some headache when she lies down; however, mostly she is feeling better now. Her nausea has also improved. She was given 100 mL of hypertonic saline yesterday, and last evening I put her on oral sodium chloride tablets due to her severe hyponatremia. 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 Patient denies any vomiting or diarrhea this morning, and she did eat. PHYSICAL EXAMINATION: Temperature 97.9 degrees Fahrenheit, heart rate 70 per minute, respiratory rate 18 per minute. Blood pressure is now 124/86 mmHg and oxygen saturation 98% on room air. She is sitting in the bed without any acute distress. Her head is atraumatic. Neck supple and jugular venous distention (JVD) or thyroid enlargement. Pupils equal and reactive to light, and sclerae are anicteric. Heart sounds are regular and lungs clear to auscultation. Abdomen soft and nontender, and bowel sounds are normal. Extremities without any cyanosis or clubbing. Neurologically she is awake, alert, and without any focal deficit. Today's labs show sodium 121, potassium 3.8, chloride 88, CO2 of 26, BUN 12, and creatinine 0.61. Glucose 72 and calcium 7.3. A cortisol level this morning has come back at 2.9. Hemoglobin is 13.2 and hematocrit 36.6. PROBLEMS: 1. Hyponatremia. Most likely she is SIADH caused by severe headache and nausea. Her urine osmolarity has been very high at 951 and 892 on two different occasions. I am going to hold off on hypertonic saline at present. She has been tolerating oral sodium chloride tablets well and is asymptomatic as far as her hyponatremia goes. I will continue with oral sodium chloride tablets 2 grams every 6 hours. Her electrolytes will be repeated this afternoon and again tomorrow morning. We will try to correct her hyponatremia gradually. 2. Headache. Her headache has improved, and she is feeling much better now. 3. Low serum cortisol level. I am not sure what this means. I do not feel that she has adrenal insufficiency, as she has no clinical features or other lab problems other than hyponatremia. If we can correct her hyponatremia with oral sodium chloride tablets and then remains stable, then we will not need any further investigation. In case she has recurrence of hyponatremia after correcting it, then we will need to do a cortisol stimulation test.
[2021-05-08 16:48] LABS: BLOOD UREA NITROGEN 10 MG/DL (7-18); CARBON DIOXIDE LEVEL 25 MEQ/L (21-32); CHLORIDE LEVEL 90 MEQ/L (98-107); GLOMERULAR FILTRATION RATE > 60.0 (>58); GLUCOSE, FASTING 76 MG/DL (70-100); POTASSIUM SERUM 3.9 MEQ/L (3.5-5.1); SODIUM LEVEL 123 MEQ/L (136-145)
[2021-05-08 22:00] VITALS: BP 128/75
[2021-05-08 23:26] LABS: BLOOD UREA NITROGEN 8 MG/DL (7-18); CALCIUM LEVEL 8.3 MG/DL (8.5-10.1); CARBON DIOXIDE LEVEL 26 MEQ/L (21-32); CHLORIDE LEVEL 93 MEQ/L (98-107); CREATININE FOR GFR 0.59 MG/DL (0.55-1.30); GLOMERULAR FILTRATION RATE > 60.0 (>58); GLUCOSE, FASTING 88 MG/DL (70-100); POTASSIUM SERUM 3.9 MEQ/L (3.5-5.1); SODIUM LEVEL 128 MEQ/L (136-145)
[2021-05-09] MEDS: SODIUM CHLORIDE 1 GM TAB PO SCH ×4 (00:15→20:05)
[2021-05-09] MEDS: METOCLOPRAMIDE INJ 10MG/2ML VIAL (J2765 PER 1) IV SCH (02:19)
[2021-05-09] MEDS: diphenhydrAMINE 50MG/ML VIAL (J1200) IV SCH (02:19)
[2021-05-09] MEDS: KETOROLAC 30 MG/ML 1ML VIAL IV SCH (02:19)
[2021-05-09 04:00] VITALS: BP 112/62
[2021-05-09] MEDS ORDERED: diphenhydrAMINE 50MG/ML VIAL (J1200) IV PRN (07:10)
[2021-05-09] MEDS ORDERED: METOCLOPRAMIDE INJ 10MG/2ML VIAL (J2765 PER 1) IV PRN (07:10)
[2021-05-09] MEDS ORDERED: KETOROLAC 30 MG/ML 1ML VIAL IV PRN (07:10)
[2021-05-09 07:17] LABS: BASO % 0.4 % (0.0-1.0); EOS # 0.3 10^3/uL (0.0-0.5); EOS % 3.5 % (0.0-3.0); HEMATOCRIT 36.7 % (36.0-47.0); HEMOGLOBIN 13.1 g/dl (12.0-15.5); LYMPH # 2.8 10^3/uL (1.5-5.0); LYMPH % 34.5 % (24.0-44.0); MEAN CORPUSCULAR HGB CONC 35.7 g/dl (32.0-36.5); MONO # 0.7 10^3/uL (0.0-0.8); MONO % 9.1 % (2.0-8.0); NEUTROPHILS # 4.2 10^3/uL (1.5-8.5); NEUTROPHILS % 52.1 % (36.0-66.0); PLATELET COUNT, AUTOMATED 326 10^3/uL (150-450); RED BLOOD COUNT 4.37 10^6/uL (4.00-5.40)
[2021-05-09 07:32] LABS: BLOOD UREA NITROGEN 9 MG/DL (7-18); CALCIUM LEVEL 7.8 MG/DL (8.5-10.1); CARBON DIOXIDE LEVEL 26 MEQ/L (21-32); CHLORIDE LEVEL 95 MEQ/L (98-107); CREATININE FOR GFR 0.65 MG/DL (0.55-1.30); GLOMERULAR FILTRATION RATE > 60.0 (>58); GLUCOSE, FASTING 78 MG/DL (70-100); POTASSIUM SERUM 4.1 MEQ/L (3.5-5.1); SODIUM LEVEL 127 MEQ/L (136-145)
[2021-05-09 14:00] VITALS: BP 124/75
--- NOTE | 2021-05-09 15:07 | IPNPDOC ---
Subjective Date Seen The patient was seen on 05/09/21. Subjective Chief Complaint/HPI Headache getting better. No further nausea. MRI pending. Objective Physical Examination General Exam: Positive: Alert, Cooperative, No Acute Distress Eye Exam: Positive: PERRLA, Conjunctiva & lids normal, EOMI; Negative: Sclera icteric ENT Exam: Positive: Atraumatic, Mucous membr. moist/pink, Pharynx Normal Neck Exam: Positive: Supple; Negative: JVD, thyromegaly Chest Exam: Positive: Clear to auscultation, Normal air movement Heart Exam: Positive: Rate Normal, Regular Rhythm, Normal S1, Normal S2; Negative: Murmurs, Rubs Abdomen Exam: Positive: Normal bowel sounds, Soft; Negative: Tenderness, Hepatospenomegaly Extremity Exam: Positive: Normal pulses; Negative: Clubbing, Cyanosis, Edema Skin Exam: Positive: Nl turgor and temperature; Negative: Breakdown, Lesion Psych Exam: Positive: Memory Intact, Oriented x 3 Assessment /Plan Assessment 45-year-old female presented to the emergency room for ongoing severe headache for the past 13 days. Patient has seen her primary care twice and medications have been ordered including ibuprofen and Tylenol and yesterday she was ordered amitriptyline which she took 1 dose without any relief of her symptoms. This morning she had nausea and vomiting along with the headache so presented to the emergency room. Patient complains of pain in the head neck mostly in the occipital region and also at the top of the head dull throbbing in nature rates the pain as 7/10 after she got some pain medication in the emergency room. Her pain is associated with sensibility to light and nausea and vomiting this morning. CT head in the emergency room was negative. Irrigations in the emergency room was not able to control her pain so she was admitted to the hospitalist service for severe intractable headache. Headache Likely acute migraine however still there is no relief of the headache We will put the patient on Toradol, Reglan, Benadryl, sumatriptan will get MRI of brain. 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 Also has low cortisol levels. will recheck. Low Cortisol Levels No other signs of adrenal insufficiency. If continues to have recurrent hyponatremia will have to investigate further . Asthma No issues at this time albuterol as needed Plan/VTE VTE Prophylaxis Ordered?: Yes VS, I&O, 24H, Fishbone Vital Signs/I&O Vital Signs Date Time Temp Pulse Resp B/P (MAP) Pulse Ox O2 Delivery O2 Flow Rate FiO2 05/09/21 04:00 98.6 60 18 112/62 (79) 96 05/08/21 14:00 Room Air I&O- Last 24 Hours up to 6 AM 05/09/21 05:59 Intake Total 2070 ml Output Total 2425 ml Balance -355 ml Laboratory Data 24H LABS Laboratory Tests 2 05/08/21 08:36: Urine Osmolality 892, Urine Random Sodium 76 05/08/21 10:37: Lab Scanned Report Miscellaneous Lab 05/08/21 13:46: Anion Gap 7L, Glomerular Filtration Rate > 60.0, Calcium Level 8.0L 05/08/21 16:16: Anion Gap 8, Glomerular Filtration Rate > 60.0, Calcium Level 8.0L 05/08/21 22:48: Anion Gap 9, Glomerular Filtration Rate > 60.0, Calcium Level 8.3L 05/09/21 06:56: CBC/BMP Laboratory Tests 05/08/21 13:46 05/08/21 16:16 05/08/21 22:48 Marely Marie MD May 09, 2021 07:14
--- NOTE | 2021-05-09 17:19 | IPN ---
NEPHROLOGY PROGRESS NOTE DATE: 05/09/2021 SUBJECTIVE: Mrs. Menjivar is seen this morning at her bedside. She is sitting in the bed working on her computer. She reports that she felt dizzy when she walked in the room and had to sit down. She denies any nausea or vomiting. Her headaches have improved. She feels some stiffness in her hands but denies any swelling. She reports good urine output. OBJECTIVE: PHYSICAL EXAMINATION: VITAL SIGNS: Temperature 98.6 degrees Fahrenheit, heart rate 60 per minute and respiratory rate 18 per minute. Blood pressure 112/62 mm of mercury and oxygen saturation is 96% on room air. INTAKE AND OUTPUT: Intake and output record from yesterday is negative by 265 mL. HEENT: Her head is atraumatic. Eyes, ears, nose and throat are unremarkable. NECK: Supple and without JVD or thyroid enlargement. HEART: Sounds are regular. LUNGS: Clear to auscultation. ABDOMEN: Soft and nontender and bowel sounds are normal. EXTREMITIES: Without any cyanosis or clubbing. She had no peripheral edema. LABORATORY STUDIES: Today's labs show a WBC count of 8.0, hemoglobin 13.1, and hematocrit 36.7. Sodium was up to 128 last evening and this morning it is 127. Potassium is 4.1, CO2 26, BUN 9 and creatinine 0.65. Glucose 78 and calcium 7.8. PROBLEMS: 1. Hyponatremia her sodium level is improving nicely and she remains on oral sodium chloride supplement. I am cutting down her sodium chloride to 2 grams twice a day. Her headache has improved and nausea has also improved. Her hyponatremia is likely to improve even without any further intervention. However I will continue with oral sodium chloride until her sodium is at least 130. 2. Headaches have improved and she is currently asymptomatic her blood pressure has been normal.
--- NOTE | 2021-05-09 19:06 | REPVR ---
PROCEDURE INFORMATION: Exam: MR Head Without Contrast Exam date and time: 05/09/2021 5:17 PM Age: 45 years old Clinical indication: Other: Intractable headache; Additional info: Intractable headache, low cortisol, hyponatremia TECHNIQUE: Imaging protocol: MR of the head without contrast. COMPARISON: CT Head without contrast 05/07/2021 9:43 AM FINDINGS: Brain: There is no evidence of acute stroke on the DWI sequence. Cerebral ventricles: Normal-sized ventricles. Pituitary gland and sella: There is a 1.6 cm in transverse dimension by 1.1 cm in AP dimension by 1.8 cm in craniocaudal extent mass of the pituitary gland. This extends superiorly and impresses on the optic chiasm. Within this lesion is a curvilinear area of high density on T1 which could represent a curvilinear area of blood or fat within the lesion. The most common lesion at this location is a pituitary adenoma. Other considerations include craniopharyngioma, a Rathke's cleft cyst, epidermoid, chordoma, metastasis, lymphoma. It would be important to have a study with IV contrast to further evaluate this and to evaluate the cavernous sinus region bilaterally. It would also be important to have contrast to exclude any possibility of aneurysm or vascular component. IMPRESSION: 1. 1.8 cm oval lesion of the sella turcica extending superiorly impressing on the optic chiasm. 2. This probably represents a primary mass arising in the pituitary gland such as a large pituitary adenoma. Other differential considerations are listed above. Unusual curvilinear structure within this mass that is bright on T1 and low in signal intensity on T2 could be a curvilinear area fat deposition. An MRI scan with contrast and thin-section coronal images would be important for further evaluation and to exclude any possibility of vascular component. Electronically signed by: Mohan Keys On 05/09/2021 19:05:52 PM
[2021-05-09 21:00] VITALS: BP 123/76
[2021-05-09] MEDS: SUMAtriptan SUCCINATE 25 MG TAB PO PRN (22:33)
[2021-05-10 06:58] VITALS: BP 113/72
[2021-05-10 07:33] LABS: BASO % 0.5 % (0.0-1.0); EOS # 0.3 10^3/uL (0.0-0.5); EOS % 3.8 % (0.0-3.0); HEMATOCRIT 39.2 % (36.0-47.0); HEMOGLOBIN 13.7 g/dl (12.0-15.5); LYMPH # 2.4 10^3/uL (1.5-5.0); LYMPH % 27.4 % (24.0-44.0); MEAN CORPUSCULAR HEMOGLOBIN 30.2 pg (27.0-33.0); MEAN CORPUSCULAR HGB CONC 34.9 g/dl (32.0-36.5); MEAN CORPUSCULAR VOLUME 86.3 fl (80.0-96.0); MONO # 0.7 10^3/uL (0.0-0.8); MONO % 8.5 % (2.0-8.0); NEUTROPHILS # 5.2 10^3/uL (1.5-8.5); NEUTROPHILS % 59.6 % (36.0-66.0); PLATELET COUNT, AUTOMATED 351 10^3/uL (150-450); RED BLOOD COUNT 4.54 10^6/uL (4.00-5.40); WHITE BLOOD COUNT 8.7 10^3/uL (4.0-10.0)
[2021-05-10 07:55] LABS: BLOOD UREA NITROGEN 8 MG/DL (7-18); CALCIUM LEVEL 8.5 MG/DL (8.5-10.1); CARBON DIOXIDE LEVEL 27 MEQ/L (21-32); CHLORIDE LEVEL 99 MEQ/L (98-107); CREATININE FOR GFR 0.72 MG/DL (0.55-1.30); GLOMERULAR FILTRATION RATE > 60.0 (>58); GLUCOSE, FASTING 86 MG/DL (70-100); POTASSIUM SERUM 4.7 MEQ/L (3.5-5.1); SODIUM LEVEL 131 MEQ/L (136-145)
[2021-05-10] MEDS: SODIUM CHLORIDE 1 GM TAB PO SCH (08:18)
[2021-05-10] MEDS ORDERED: SENOKOT S TAB PO SCH (09:00)
[2021-05-10] MEDS ORDERED: SODIUM CHLORIDE NASAL 0.65% SPRAY BTL (OCEAN) PRN (09:35)
[2021-05-10 10:36] LABS: PROLACTIN 115.4 NG/ML
[2021-05-10] MEDS ORDERED: PROHANCE 279.3MG/ML 5ML VIAL As Ordered ONE (12:20)
[2021-05-10] MEDS ORDERED: SODI1TAB6 PO ×2 (12:28→14:18)
[2021-05-10] MEDS ORDERED: ACET500P3 PO ×2 (12:28→14:18)
--- NOTE | 2021-05-10 15:03 | REPVR ---
PROCEDURE INFORMATION: Exam: MR Head Without and With Contrast, Sella Exam date and time: 05/10/2021 1:55 PM Age: 45 years old Clinical indication: Other: Prior brain mri without; Additional info: With thin coronal sections TECHNIQUE: Imaging protocol: MR of the head without and with intravenous contrast. Exam focused on the sella. Contrast material: PROHANCE; Contrast volume: 10 ml; Contrast route: INTRAVENOUS (IV); COMPARISON: MRI-Brain without Contrast 05/09/2021 5:14 PM FINDINGS: Brain: No acute infarction, acute hemorrhage or midline shift is seen. There is no abnormal diffusion weighted signal intensity to suggest an acute ischemic event. Examination of the posterior fossa demonstrates no significant abnormality. Cerebral ventricles: The ventricular system is not dilated and is appropriate for the patient's age. Pituitary gland and sella: Examination again demonstrates an approximately 1.4 x 1.2 x 1.0 cm well-defined mass arising from the sella with suprasellar extension causing compression and superior displacement of the optic chiasm. The mass appears isointense on T1 with a small area of hyperintensity located anteroinferior leave which may represent focal fat within the lesion. The mass appears hyperintense on FLAIR images reflecting high-protein issues content. Post-contrast images demonstrate no significant enhancement. The mass causes mild compression and inferior displacement of the pituitary tissue. The pituitary gland enhances normally. 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 Bones/joints: Unremarkable. IMPRESSION: 1. Examination again demonstrates an approximately 1.4 x 1.2 x 1.0 cm well-defined mass arising from the sella with suprasellar extension causing compression and superior displacement of the optic chiasm. The mass appears isointense on T1 with a small area of hyperintensity located anteroinferior leave which may represent focal fat within the lesion. The mass appears hyperintense on FLAIR images reflecting high-protein issues content. Post-contrast images demonstrate no significant enhancement. The mass causes mild compression and inferior displacement of the pituitary tissue. The pituitary gland enhances normally. 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 2. No acute infarction, acute hemorrhage or midline shift is seen. Electronically signed by: Raymon Cedeno On 05/10/2021 15:03:02 PM
--- NOTE | 2021-05-10 16:38 | IPN ---
PROGRESS NOTE DATE: 05/10/2021 SUBJECTIVE: Mrs. Menjivar is seen this morning on her bedside. She reports that she has been told by the Hospitalist this morning that she has a pituitary tumor and she is likely to be transferred to [facility]. Her headache has improved but not completely resolved. She denies any nausea or vomiting at present. She has no dyspnea, chest pain or leg edema. OBJECTIVE: VITAL SIGNS: Temperature is 97.8 degrees Fahrenheit, heart rate is 68 per minute and respiratory rate is 18 per minute. Blood pressure is 113/72 mmHg and oxygen saturation is 98% on room air. HEENT: Head is atraumatic. NECK: Supple and without JVD or thyroid enlargement. HEART: Heart sounds are regular. LUNGS: Clear to auscultation. ABDOMEN: Soft and nontender. Bowel sounds are normal. EXTREMITIES: Without any cyanosis or clubbing. NEUROLOGIC: She is awake, alert and oriented x3. LABORATORY DATA: Today's chemistries showed a sodium level up to 131 and potassium is 4.7. BUN is 8 and creatinine is 0.72. Glucose is 86 and calcium is 8.5. Yesterday, her cortisol level came back at 3.0. CBC is unremarkable. She had an MRI of her brain done yesterday without contrast which showed 1.8 cm tumor in her pituitary gland which is pressing on the optic chiasm. PROBLEMS: 1. Hyponatremia, most likely related to inappropriate ADH. It is likely that she had ADH producing tumor but she was also very nauseated and she had a severe headache for at least a couple of weeks which could have contributed to it. In any event, her symptoms have improved and the sodium level is improving. She is currently on 2 gram oral sodium chloride tablets twice a day. I will continue with the same until discharge. 2. Pituitary tumor. Patient is now waiting for another MRI with IV contrast. She is likely to be transferred and if she could not be transferred then she could probably be discharged and see a neurosurgeon as an outpatient. I have discussed with the Hospitalist Service. 3. Headache, probably related to the pituitary tumor. The headache has improved with the medications. MTDD
--- NOTE | 2021-05-24 21:40 | DS.PDOC ---
Discharge Summary General Date of Admission May 07, 2021 at 11:10 Date of Discharge 05/10/21 Discharge Summary PROCEDURES PERFORMED DURING STAY: [None]. DISCHARGE DIAGNOSES: Sellar Mass Hyponatremia due to SIADH Hypocortisolism COMPLICATIONS/CHIEF COMPLAINT: Headache, Hyponatremia. HOSPITAL COURSE: 45-year-old female presented to the emergency room for ongoing severe headache for the past 13 days. Patient has seen her primary care twice and medications have been ordered including ibuprofen and Tylenol and yesterday she was ordered amitriptyline which she took 1 dose without any relief of her symptoms. This morning she had nausea and vomiting along with the headache so presented to the emergency room. Patient complains of pain in the head neck mostly in the occipital region and also at the top of the head dull throbbing in nature rates the pain as 7/10 after she got some pain medication in the emergency room. Her pain is associated with sensibility to light and nausea and vomiting this morning. CT head in the emergency room was negative. Irrigations in the emergency room was not able to control her pain so she was admitted to the hospitalist service for severe intractable headache. 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 presented with Headache and hyponatremia and some visual problems Appointment made with Neurosurgery at [facility] on 05/28/[address] Will need to be evaluated by Ophthalmology prior to seeing neurosurgery. Hyponatremia Na 121, urine os > 900 , Ur Na at 126 SIADH due to severe headache and nausea and possibly pitutary fossa mass continue on salt tabs. Follow up with PMD Low Cortisol Levels No other signs of adrenal insufficiency. Asthma No issues at this time albuterol as needed DISCHARGE MEDICATIONS: Please see below. ALLERGIES: Please see below. PHYSICAL EXAMINATION ON DISCHARGE: VITAL SIGNS: Please see below. General Exam: Positive: Alert, Cooperative, No Acute Distress Eye Exam: Positive: PERRLA, Conjunctiva & lids normal, EOMI; Negative: Sclera icteric ENT Exam: Positive: Atraumatic, Mucous membr. moist/pink, Pharynx Normal Neck Exam: Positive: Supple; Negative: JVD, thyromegaly Chest Exam: Positive: Clear to auscultation, Normal air movement Heart Exam: Positive: Rate Normal, Regular Rhythm, Normal S1, Normal S2; Negative: Murmurs, Rubs Abdomen Exam: Positive: Normal bowel sounds, Soft; Negative: Tenderness, Hepatospenomegaly Extremity Exam: Positive: Normal pulses; Negative: Clubbing, Cyanosis, Edema Skin Exam: Positive: Nl turgor and temperature; Negative: Breakdown, Lesion Psych Exam: Positive: Memory Intact, Oriented x 3 LABORATORY DATA: Please see below. IMAGING: Pituitary MRI : FINDINGS: Brain: No acute infarction, acute hemorrhage or midline shift is seen. There is no abnormal diffusion weighted signal intensity to suggest an acute ischemic event. Examination of the posterior fossa demonstrates no significant abnormality. Cerebral ventricles: The ventricular system is not dilated and is appropriate for the patient's age. Pituitary gland and sella: Examination again demonstrates an approximately 1.4 x 1.2 x 1.0 cm well-defined mass arising from the sella with suprasellar extension causing compression and superior displacement of the optic chiasm. The mass appears isointense on T1 with a small area of hyperintensity located anteroinferior leave which may represent focal fat within the lesion. The mass appears hyperintense on FLAIR images reflecting high-protein issues content. Post-contrast images demonstrate no significant enhancement. The mass causes mild compression and inferior displacement of the pituitary tissue. The pituitary gland enhances normally. 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 Bones/joints: Unremarkable. IMPRESSION: 1. Examination again demonstrates an approximately 1.4 x 1.2 x 1.0 cm well-defined mass arising from the sella with suprasellar extension causing compression and superior displacement of the optic chiasm. The mass appears isointense on T1 with a small area of hyperintensity located anteroinferior leave which may represent focal fat within the lesion. The mass appears hyperintense on FLAIR images reflecting high-protein issues content. Post-contrast images demonstrate no significant enhancement. The mass causes mild compression and inferior displacement of the pituitary tissue. The pituitary gland enhances normally. 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 2. No acute infarction, acute hemorrhage or midline shift is seen. ACTIVITY: [As tolerated]. DIET: Regular DISPOSITION: 01 Home, Self-Care. DISCHARGE INSTRUCTIONS: PCP in 1 week Neurosurgery at [facility] Dr Wood on 05/28/21 at 3:15 pm Will Need ophthalmology evaluation DISCHARGE CONDITION: [Stable]. TIME SPENT ON DISCHARGE: 35 minutes. Discharge Medications Scheduled Sodium Chloride (Sodium Chloride) 1 Gm Tablet, 2 GM PO BID Scheduled PRN Acetaminophen (Tylenol Extra Strength) 500 Mg Powd.pack, 1,000 MG PO TIDP PRN for HEADACHE Albuterol Sulfate (Proair Hfa) 8.5 Gm Hfa.aer.ad, 2 PUFF INH Q4H PRN for SHORTNESS OF BREATH, (Reported) Cetirizine HCl (Cetirizine HCl) 10 Mg Tablet, 10 MG PO DAILY PRN for ALLERGIES, (Reported) Allergies Coded Allergies: No Known Allergies (Unverified , 08/12/19) Marely Marie MD May 24, 2021 21:39
== END 2021-05-10 15:30 | disposition home or self-care (01) | DRG 645 ==
LOC: M ED 07:43 → M ED INP 11:10 → ENRESERV 14:34 → M MSPAV 16:06
PROVIDERS: ADMIT Internal Medicine Nephrology; ATTEND Internal Medicine Nephrology
DX: E23.6 Other disorders of pituitary gland (principal); D44.4 Neoplasm of uncertain behavior of craniopharyngeal duct; E22.2 Syndrome of inappropriate secretion of antidiuretic hormone; J45.909 Unspecified asthma, uncomplicated; Z79.899 Other long term (current) drug therapy; Z20.822 Contact with and (suspected) exposure to COVID-19

== ENCOUNTER → 2021-08-11 | Outpatient (CLI) | payer OTHER ==
[~2021-08-11] MED LIST changes: +ACET500P3 PO; +AMIT10TA7 PO; +CETI-24 PO; +FLUTISP NARES; +PROAAER10 INH; +SODI1TAB6 PO
[2021-08-11 19:40] LABS: BLOOD UREA NITROGEN 10 MG/DL (7-18); CALCIUM LEVEL 8.8 MG/DL (8.5-10.1); CARBON DIOXIDE LEVEL 28 MEQ/L (21-32); CHLORIDE LEVEL 106 MEQ/L (98-107); CREATININE FOR GFR 0.74 MG/DL (0.55-1.30); GLOMERULAR FILTRATION RATE > 60.0 (>58); GLUCOSE, FASTING 93 MG/DL (70-100); POTASSIUM SERUM 4.1 MEQ/L (3.5-5.1); SODIUM LEVEL 139 MEQ/L (136-145)
[2021-08-11 20:14] LABS: OSMOLALITY SERUM 292 MOSM/KG (275-295)
== END ==
LOC: M WUC 15:00
PROVIDERS: ATTEND Internal Medicine Endocrinology, Diabetes & Metabolism
DX: E23.2 Diabetes insipidus (principal)

== ENCOUNTER → 2021-09-24 | Outpatient (CLI) | payer OTHER ==
[2021-09-24 20:11] LABS: BLOOD UREA NITROGEN 9 MG/DL (7-18); CALCIUM LEVEL 9.2 MG/DL (8.5-10.1); CARBON DIOXIDE LEVEL 29 MEQ/L (21-32); CHLORIDE LEVEL 108 MEQ/L (98-107); CREATININE FOR GFR 0.79 MG/DL (0.55-1.30); FREE T4 0.78 NG/DL (0.76-1.46); GLOMERULAR FILTRATION RATE > 60.0 (>58); GLUCOSE, FASTING 116 MG/DL (70-100); POTASSIUM SERUM 4.4 MEQ/L (3.5-5.1); SODIUM LEVEL 141 MEQ/L (136-145)
[2021-09-24 20:17] LABS: OSMOLALITY SERUM 299 MOSM/KG (275-295)
== END ==
LOC: M WUC 15:18
PROVIDERS: ATTEND Internal Medicine Endocrinology, Diabetes & Metabolism
DX: E23.2 Diabetes insipidus (principal); E23.6 Other disorders of pituitary gland

== ENCOUNTER → 2021-11-24 | Outpatient (CLI) | payer OTHER | LOC: M WUC 08:10 | PROVIDERS: ATTEND Internal Medicine Endocrinology, Diabetes & Metabolism | DX: E23.6 Other disorders of pituitary gland (principal) ==

== ENCOUNTER → 2022-02-03 | Outpatient (CLI) | payer OTHER ==
[2022-02-03 10:57] LABS: OSMOLALITY SERUM 289 MOSM/KG (275-295)
[2022-02-03 11:19] LABS: BLOOD UREA NITROGEN 11 MG/DL (7-18); CALCIUM LEVEL 8.9 MG/DL (8.5-10.1); CARBON DIOXIDE LEVEL 29 MEQ/L (21-32); CHLORIDE LEVEL 108 MEQ/L (98-107); CREATININE FOR GFR 0.77 MG/DL (0.55-1.30); GLOMERULAR FILTRATION RATE > 60.0 (>58); GLUCOSE, FASTING 102 MG/DL (70-100); POTASSIUM SERUM 4.4 MEQ/L (3.5-5.1); SODIUM LEVEL 139 MEQ/L (136-145)
[2022-02-03 11:25] LABS: CORTISOL AM 7.4 UG/DL (4.3-22.4); PROLACTIN 11.8 NG/ML
== END ==
LOC: M WUC 08:02
PROVIDERS: ATTEND Internal Medicine Endocrinology, Diabetes & Metabolism
DX: E23.2 Diabetes insipidus (principal); E23.0 Hypopituitarism

== ENCOUNTER → 2022-03-08 | Outpatient (CLI) | payer OTHER | LOC: M WHC 08:34 | PROVIDERS: ATTEND Family Medicine | DX: Z12.31 Encounter for screening mammogram for malignant neoplasm of breast (principal) ==

== ENCOUNTER → 2022-04-15 | Outpatient (CLI) | payer OTHER ==
[2022-04-15 10:49] LABS: APPEARANCE, URINE MANUAL CLOUDY (CLEAR); COLOR, URINE MANUAL YELLOW (YELLOW)
[2022-04-15 10:50] LABS: SPECIFIC GRAVITY,URINE MANUAL 1.025 (1.002-1.035)
[2022-04-15 10:51] LABS: BILIRUBIN, URINE MANUAL NEGATIVE (NEGATIVE); BLOOD URINE MANUAL TRACE (NEGATIVE); GLUCOSE, URINE (UA) MANUAL NEGATIVE (NEGATIVE); KETONE, URINE MANUAL NEGATIVE (NEGATIVE); LEUKOCYTE ESTERASE, URINE MAN NEGATIVE (NEGATIVE); NITRITE, URINE MANUAL NEGATIVE (NEGATIVE); PROTEIN, URINE MANUAL NEGATIVE (NEGATIVE); UROBILINOGEN, URINE MANUAL NORMAL (NORMAL)
[2022-04-15 10:59] LABS: AMORPHOUS SEDIMENT, URINE LARGE AMOUNT (NEGATIVE); SQUAMOUS EPITHELIAL CELL URINE MOD AMOUNT /hpf (SMALL AMT)
[2022-04-15 11:00] LABS: BACTERIA, URINE SMALL AMOUNT; HYALINE CAST, URINE NONE SEEN /lpf (0-1)
[2022-04-15 11:56] LABS: ALBUMIN 3.8 GM/DL (3.2-5.2); ALT/SGPT 28 U/L (12-78); BILIRUBIN,TOTAL 0.4 MG/DL (0.2-1.0); BLOOD UREA NITROGEN 11 MG/DL (7-18); CARBON DIOXIDE LEVEL 29 MEQ/L (21-32); CHLORIDE LEVEL 106 MEQ/L (98-107); CREATININE FOR GFR 0.82 MG/DL (0.55-1.30); FREE T4 0.86 NG/DL (0.76-1.46); GLOMERULAR FILTRATION RATE > 60.0 (>58); GLUCOSE, FASTING 72 MG/DL (70-100); POTASSIUM SERUM 4.6 MEQ/L (3.5-5.1); SODIUM LEVEL 139 MEQ/L (136-145); TOTAL PROTEIN 6.9 GM/DL (6.4-8.2)
[2022-04-15 12:24] LABS: CORTISOL AM 9.8 UG/DL (4.3-22.4)
== END ==
LOC: M WUC 08:00
PROVIDERS: ATTEND Internal Medicine Endocrinology, Diabetes & Metabolism
DX: E23.2 Diabetes insipidus (principal); E23.6 Other disorders of pituitary gland

== ENCOUNTER → 2022-08-04 | Outpatient (CLI) | payer OTHER ==
[2022-08-04 10:18] LABS: CORTISOL AM 7.8 UG/DL (4.3-22.4)
[2022-08-04 10:21] LABS: BLOOD UREA NITROGEN 15 MG/DL (9-23); CARBON DIOXIDE LEVEL 29 MMOL/L (20-31); CHLORIDE LEVEL 105 MMOL/L (98-107); CREATININE FOR GFR 0.72 MG/DL (0.55-1.30); GLOMERULAR FILTRATION RATE > 60.0 (>58); GLUCOSE, FASTING 79 MG/DL (60-100); POTASSIUM SERUM 4.5 MMOL/L (3.5-5.1); SODIUM LEVEL 140 MMOL/L (136-145)
[2022-08-04 10:22] LABS: PROLACTIN 9.06 NG/ML; THYROID STIMULATING HORMONE 1.485 uIU/ML (0.55-4.78)
[2022-08-04 10:24] LABS: FREE T4 1.03 NG/DL (0.89-1.76)
[2022-08-04 10:43] LABS: OSMOLALITY SERUM 295 MOSM/KG (275-295)
== END ==
LOC: M WUC 08:03
PROVIDERS: ATTEND Internal Medicine Endocrinology, Diabetes & Metabolism
DX: E23.2 Diabetes insipidus (principal); E23.0 Hypopituitarism

== ENCOUNTER → 2022-11-16 | Outpatient (CLI) | payer OTHER ==
[~2022-11-16] MED LIST changes: +FLUT50SP17 NARES; -FLUTISP NARES
[2022-11-16 11:08] LABS: OSMOLALITY SERUM 288 MOSM/KG (275-295)
[2022-11-16 11:11] LABS: BLOOD UREA NITROGEN 11 MG/DL (9-23); CALCIUM LEVEL 8.4 MG/DL (8.5-10.1); CARBON DIOXIDE LEVEL 28 MMOL/L (20-31); CHLORIDE LEVEL 104 MMOL/L (98-107); CREATININE FOR GFR 0.74 MG/DL (0.55-1.30); GLOMERULAR FILTRATION RATE > 60.0 (>58); GLUCOSE, FASTING 88 MG/DL (60-100); POTASSIUM SERUM 4.4 MMOL/L (3.5-5.1); SODIUM LEVEL 138 MMOL/L (136-145)
== END ==
LOC: M WUC 08:09
PROVIDERS: ATTEND Internal Medicine Endocrinology, Diabetes & Metabolism
DX: E23.2 Diabetes insipidus (principal)

== ENCOUNTER → 2022-12-29 | Outpatient (CLI) | payer OTHER ==
[2022-12-29 11:09] LABS: ALBUMIN 3.7 G/DL (3.2-5.2); BLOOD UREA NITROGEN 12 MG/DL (9-23); CALCIUM LEVEL 9.3 MG/DL (8.5-10.1); CARBON DIOXIDE LEVEL 27 MMOL/L (20-31); CHLORIDE LEVEL 105 MMOL/L (98-107); CREATININE FOR GFR 0.78 MG/DL (0.55-1.30); GLOMERULAR FILTRATION RATE > 60.0 (>58); GLUCOSE, FASTING 82 MG/DL (60-100); PHOSPHORUS LEVEL 3.5 MG/DL (2.5-4.9); POTASSIUM SERUM 4.3 MMOL/L (3.5-5.1); SODIUM LEVEL 136 MMOL/L (136-145)
[2022-12-29 11:16] LABS: TOTAL 25(OH) VITAMIN D 28.9 NG/ML (20.0-100.0)
[2022-12-29 11:29] LABS: PTH INTACT 49.9 PG/ML (18.5-88.0)
== END ==
LOC: M WUC 08:14
PROVIDERS: ATTEND Internal Medicine Endocrinology, Diabetes & Metabolism
DX: E83.51 Hypocalcemia (principal)

== ENCOUNTER → 2023-02-27 | Outpatient (CLI) | payer OTHER ==
[2023-02-27 12:50] LABS: OSMOLALITY SERUM 292 MOSM/KG (275-295)
[2023-02-27 12:51] LABS: BLOOD UREA NITROGEN 10 MG/DL (9-23); CALCIUM LEVEL 8.9 MG/DL (8.5-10.1); CARBON DIOXIDE LEVEL 28 MMOL/L (20-31); CHLORIDE LEVEL 106 MMOL/L (98-107); CREATININE FOR GFR 0.74 MG/DL (0.55-1.30); GLOMERULAR FILTRATION RATE > 60.0 (>58); GLUCOSE, FASTING 137 MG/DL (60-100); SODIUM LEVEL 139 MMOL/L (136-145)
[2023-02-27 12:53] LABS: FREE T4 0.86 NG/DL (0.89-1.76); THYROID STIMULATING HORMONE 1.588 uIU/ML (0.55-4.78)
== END ==
LOC: M WUC 09:27
PROVIDERS: ATTEND Internal Medicine Endocrinology, Diabetes & Metabolism
DX: E23.0 Hypopituitarism (principal); E23.2 Diabetes insipidus

== ENCOUNTER → 2023-03-09 | Outpatient (CLI) | payer OTHER | LOC: M WHC 14:13 | PROVIDERS: ATTEND Family Medicine | DX: Z12.31 Encounter for screening mammogram for malignant neoplasm of breast (principal) ==

== ENCOUNTER → 2023-03-21 | Outpatient (CLI) | payer OTHER | LOC: M WHC 14:22 | PROVIDERS: ATTEND Family Medicine | DX: Z12.31 Encounter for screening mammogram for malignant neoplasm of breast (principal) ==

== ENCOUNTER → 2023-04-28 | Outpatient (CLI) | payer OTHER ==
[2023-04-28 11:01] LABS: FREE T4 0.97 NG/DL (0.89-1.76); THYROID STIMULATING HORMONE 1.898 uIU/ML (0.55-4.78)
== END ==
LOC: M WUC 08:02
PROVIDERS: ATTEND Internal Medicine Endocrinology, Diabetes & Metabolism
DX: E23.0 Hypopituitarism (principal)

== ENCOUNTER → 2024-01-05 | Outpatient (REF) | payer OTHER ==
[~2024-01-05] MED LIST changes: -FLUT50SP17 NARES; +FLUTISP NARES
[2024-01-05 11:50] LABS: OSMOLALITY SERUM 299 MOSM/KG (275-295)
[2024-01-05 11:52] LABS: BLOOD UREA NITROGEN 13 MG/DL (9-23); CALCIUM LEVEL 9.6 MG/DL (8.5-10.1); CARBON DIOXIDE LEVEL 31 MMOL/L (20-31); CHLORIDE LEVEL 105 MMOL/L (98-107); CREATININE FOR GFR 0.75 MG/DL (0.55-1.30); GLOMERULAR FILTRATION RATE > 60.0 (>58); GLUCOSE, FASTING 103 MG/DL (60-100); POTASSIUM SERUM 4.2 MMOL/L (3.5-5.1); SODIUM LEVEL 140 MMOL/L (136-145)
== END ==
LOC: M LABWUC 10:14
PROVIDERS: ATTEND Internal Medicine Endocrinology, Diabetes & Metabolism
DX: E23.2 Diabetes insipidus (principal)

== ENCOUNTER → 2024-01-22 | Outpatient (CLI) | payer OTHER ==
[2024-01-22 12:02] LABS: OSMOLALITY SERUM 298 MOSM/KG (275-295)
[2024-01-22 12:06] LABS: BLOOD UREA NITROGEN 11 MG/DL (9-23); CALCIUM LEVEL 8.9 MG/DL (8.5-10.1); CARBON DIOXIDE LEVEL 26 MMOL/L (20-31); CHLORIDE LEVEL 108 MMOL/L (98-107); CREATININE FOR GFR 0.74 MG/DL (0.55-1.30); GLOMERULAR FILTRATION RATE > 60.0 (>58); GLUCOSE, FASTING 100 MG/DL (60-100); POTASSIUM SERUM 4.3 MMOL/L (3.5-5.1); SODIUM LEVEL 140 MMOL/L (136-145)
== END ==
LOC: M WUC 08:18
PROVIDERS: ATTEND Internal Medicine Endocrinology, Diabetes & Metabolism
DX: E23.2 Diabetes insipidus (principal)

== ENCOUNTER → 2024-06-07 | Outpatient (CLI) | payer OTHER ==
[2024-06-07 10:57] LABS: BLOOD UREA NITROGEN 12 MG/DL (9-23); CALCIUM LEVEL 9.3 MG/DL (8.5-10.1); CARBON DIOXIDE LEVEL 30 MMOL/L (20-31); CHLORIDE LEVEL 106 MMOL/L (98-107); CREATININE FOR GFR 0.74 MG/DL (0.55-1.30); GLOMERULAR FILTRATION RATE > 60.0 (>58); GLUCOSE, FASTING 82 MG/DL (60-100); POTASSIUM SERUM 4.4 MMOL/L (3.5-5.1); SODIUM LEVEL 142 MMOL/L (136-145)
== END ==
LOC: M WUC 08:06
PROVIDERS: ATTEND Internal Medicine Endocrinology, Diabetes & Metabolism
DX: E23.2 Diabetes insipidus (principal); E23.0 Hypopituitarism

== ENCOUNTER → 2025-06-17 | Outpatient (CLI) | payer OTHER ==
[~2025-06-17] MED LIST changes: +AMIT10TA11 PO; -AMIT10TA7 PO
[2025-06-17 12:35] LABS: FREE T4 1.2 NG/DL (0.89-1.76)
== END ==
LOC: M WUC 08:06
PROVIDERS: ATTEND Internal Medicine Endocrinology, Diabetes & Metabolism
DX: R94.6 Abnormal results of thyroid function studies (principal); E78.5 Hyperlipidemia, unspecified; E23.6 Other disorders of pituitary gland

== ENCOUNTER → 2025-06-17 | Outpatient (CLI) | payer OTHER ==
[2025-06-17 12:32] LABS: ALT/SGPT 72.0 U/L (7.0-40); AST/SGOT 40.0 U/L (<34); CHOLESTEROL LEVEL 216.0 MG/DL (<200); CHOLESTEROL RISK RATIO 4.64 (<5); CPK CREATINE PHOSPHOKINASE 67.0 U/L (34-145); LDL CHOLESTEROL 142.5 MG/DL (<100); NON-HDL-C 169.5 MG/DL; TRIGLYCERIDES LEVEL 135.0 MG/DL (<150)
== END ==
LOC: M WUC 08:05
PROVIDERS: ATTEND Physician Assistant
DX: E78.2 Mixed hyperlipidemia (principal)